=== PATIENT | male | born 1965 | race Caucasian/White ===

== ENCOUNTER → 2025-06-09 | Outpatient (REF) | payer MEDICARE, MEDICAID, SELFPAY ==
[2025-06-09 09:38] LABS: AST(SGOT) 19 U/L (<=37); Alanine Aminotransfer ALT/SGPT 43 U/L (<=46); Albumin, Serum 3.3 g/dL (3.5-5.0); Alkaline Phosphatase 107 U/L (40-129); Anion Gap 12 (5-15); BUN 12 mg/dL (4-19); BUN/Creat Ratio 20.3 RATIO (10-20); Calcium,Total 9.0 mg/dL (7.6-11.0); Carbon Dioxide 24.6 mmol/L (21.0-32.0); Chloride 93 mmol/L (98-108); Globulin 2.8 g/dL (2.2-4.2); Glucose 194 mg/dL (70-99); Potassium 3.8 mmol/L (3.3-5.1)
[2025-06-09 11:57] LABS: Hematocrit 37.6 % (40-54); Hemoglobin 12.3 g/dL (13.0-16.5); Mean Corp Hgb Conc 32.7 g/dL (32-36); Mean Corpuscular Volume 87.2 fL (80-94); Mean Platelet Vol. 9.4 fl (6.2-12.0); Platelet Count 470 K/mm3 (150-450); RBC Distribution Width CV 15.8 % (11.6-14.6); RBC Distribution Width SD 50.1 fl (35.1-43.9); Red Blood Count 4.31 M/mm3 (4.6-6.2); White Blood Count 13.8 K/mm3 (4.4-11.0)
== END ==
LOC: OLS.ACW300 05:00
PROVIDERS: Visit Provider Internal Medicine
DX: Z00.00 Encounter for general adult medical examination without abnormal findings (principal)
CPT/HCPCS: 36415; 80053; 85027

== ENCOUNTER → 2025-06-11 | Outpatient (REF) | payer MEDICARE, MEDICAID, SELFPAY ==
[2025-06-11 08:13] LABS: Cholesterol 124 mg/dL (<=200); Low Density Lipoprotein Calc. 73 mg/dL; Triglycerides 98 mg/dL; Very Low Density Lipoprotein 20 mg/dL (5-40); Vitamin D,25 Hydroxy 17.9 ng/mL (30-100); cholesterol:hdl ratio screen 3.94
== END ==
LOC: OLS.ACW300 05:00
PROVIDERS: Visit Provider Internal Medicine
DX: S72.92XD Unspecified fracture of left femur, subsequent encounter for closed fracture with routine healing (principal); C79.31 Secondary malignant neoplasm of brain; C34.90 Malignant neoplasm of unspecified part of unspecified bronchus or lung
CPT/HCPCS: 36415; 80061; 82306; 83036; 84443